=== PATIENT | female | born 1995 | race Caucasian/White ===

== ENCOUNTER 2019-04-09 18:19 | Emergency (ER) | payer SELFPAY ==
[2019-04-09 18:23] VITALS: BP 123/84; PULSE 69; TEMP 98.1; BMI 21.7
--- NOTE | 2019-04-09 18:26 | PDOC ---
Rapid Medical Evaluation Chief Complaint: Headache Time Seen by Provider: 04/09/19 18:20 Medical Evaluation: 04/09/19 18:21 I have performed a brief in-person evaluation of this patient. The patient presents with a chief complaint of: headache started 5 days ago, temporal/ bilateral with photophobia-no relief with Pertinent physical exam findings: + photophobic, with sinus fullness. I have ordered the following: UA/ UCG The patient will proceed to the ED for further evaluation. 04/09/19 18:25 Discharge Disposition - Diagnosis Head ache - Referrals - Patient Instructions - Post Discharge Activity
--- NOTE | 2019-04-09 18:53 | PDOC ---
History of Present Illness - General Chief Complaint: Headache Stated Complaint: HEADACHE Time Seen by Provider: 04/09/19 18:20 History Source: Patient - History of Present Illness Initial Comments: 04/09/19 19:08 Chief complaint: Headache/head injury Patient is a healthy 24-year-old female who states that several days ago, she hit head, no LOC, hit her head on a cabinet, frontal, has had nausea. She developed headache 2 days later. So also having photophobia and nausea still. No fever. No numbness. Patient took Motrin without relief. GENERAL/CONSTITUTIONAL: No fever, weakness. dizziness HEAD, EYES, EARS, NOSE AND THROAT: No change in vision. No ear pain or discharge. No sore throat. CARDIOVASCULAR: No chest pain RESPIRATORY: No shortness of breath or cough GASTROINTESTINAL: No pain, nausea, vomiting, diarrhea or constipation GENITOURINARY: No dysuria MUSCULOSKELETAL: No neck or back pain SKIN: No rash NEUROLOGIC: + headache, no: vertigo, loss of consciousness, or loss of sensation. GENERAL: The patient is awake, alert, and fully oriented, in no acute distress. HEAD: Normal with no signs of trauma. EYES: Pupils equal, round and reactive to light, sclera anicteric, conjunctiva clear. ENT: pharynx: no erythema, no exudate, uvula midline NECK: supple CHEST: clear, nontender, rr ABD: soft, nontender BACK: no tenderness or signs of injury EXTREMITIES: Normal range of motion, no edema. NEUROLOGICAL: Normal speech, normal gait. Cranial nerves II through XII grossly intact, no gross focal abnormalities SKIN: Warm, Dry Past History - Past Medical History Allergies/Adverse Reactions: Allergies Allergy/AdvReac Type Severity Reaction Status Date / Time No Known Allergies Allergy Verified 04/09/19 18:23 COPD: No - Suicide/Smoking/Psychosocial Hx Smoking History: Never smoked Information on smoking cessation initiated: No Hx Alcohol Use: No Drug/Substance Use Hx: No *Physical Exam - Vital Signs Last Vital Signs Temp Pulse Resp BP Pulse Ox 98.1 F 69 19 123/84 100 04/09/19 18:21 04/09/19 18:21 04/09/19 18:21 04/09/19 18:21 04/09/19 18:21 Medical Decision Making - Medical Decision Making 04/09/19 19:11 Healthy 24-year-old female with no medical history, that hit her head 5 days ago , developed headache 2 days after that, continues with nausea, photophobia. Patient has had headache in the past but not frequently, had one 1 month ago but can't remember time before that she had it. She does not have a regular doctor is never seen a neurologist. Patient took Motrin without relief. Given the patient had head injury, will get head CT, unlikely hemorrhage, patient will give fluids, Reglan and Benadryl and be reassessed. 04/09/19 20:40 Patient feels better, head CT is negative, patient will be discharged home. *DC/Admit/Observation/Transfer Diagnosis at time of Disposition: Head ache Qualifiers: Headache type: unspecified Headache chronicity pattern: acute headache Intractability: not intractable Qualified Code(s): R51 - Headache - Discharge Dispostion Disposition: HOME Condition at time of disposition: Stable - Referrals Referrals: Jason Cervantes MD [Staff Physician] - - Patient Instructions Additional Instructions: Drink 2-3 L of water daily Take Tylenol 650 mg every 4 hours or Motrin 600 mg every 6 hours for fever and pain Return to the nearest ER if vomiting, severe headache, numbness or feeling sicker Followup with your doctor in one to 2 days. It may be beneficial, and a follow- up with neurology, neurologist as listed on your discharge instructions feel: Make an appointment - Post Discharge Activity
[2019-04-09] MEDS ORDERED: METOCLOPRAMIDE HCL INJECTION 10 MG/2 ML VIAL IVPUSH ONE (18:58)
[2019-04-09] MEDS ORDERED: METOCLOPRAMIDE HCL INJECTION 10 MG/2 ML VIAL ONE (18:59)
[2019-04-09] MEDS ORDERED: SODIUM CHLORIDE 1,000 ML IV STA (19:03)
[2019-04-09 19:14] LABS: EPI CELLS 2.4 /HPF (0-5/HPF); HYALINE CASTS 0 /lpf (0-8); URINE APPEARANCE CLOUDY; URINE BACTERIA 97.7 /hpf (NEGATIVE); URINE BILIRUBIN NEGATIVE (NEGATIVE); URINE COLOR YELLOW; URINE GLUCOSE (UA) NEGATIVE (NEGATIVE); URINE KETONE NEGATIVE (NEGATIVE); URINE LEUK ESTERASE NEGATIVE (NEGATIVE); URINE NITRITE NEGATIVE (NEGATIVE); URINE PROTEIN NEGATIVE (NEGATIVE); URINE RBC 28 /hpf (0-4); URINE UROBILINOGEN 0.2 mg/dL (0.2-1.0); URINE WBC 1 /hpf (0-5)
== END 2019-04-09 20:40 | disposition home or self-care (01) ==
LOC: JER 18:19 → JERFT 18:19
PROC: 3E0337Z Introduction of Electrolytic and Water Balance Substance into Peripheral Vein, Percutaneous Approach (ICD-10-PCS; principal; 2019-04-09)
PROC: 3E033GC Introduction of Other Therapeutic Substance into Peripheral Vein, Percutaneous Approach (ICD-10-PCS; 2019-04-09)
PROC: 3E033GC Introduction of Other Therapeutic Substance into Peripheral Vein, Percutaneous Approach (ICD-10-PCS; 2019-04-09)
DX: R51 Headache (principal); W22.8XXA Striking against or struck by other objects, initial encounter; Y93.89 Activity, other specified; Y92.89 Other specified places as the place of occurrence of the external cause; Y99.8 Other external cause status
CPT/HCPCS: 70450-TC; 81003; 84703; 99282-25; J7030

== ENCOUNTER 2019-10-21 16:12 | Emergency (ER) | payer OTHER ==
[2019-10-21] MEDS ORDERED: ACETAMINOPHEN 500 MG TABLET (FP) PO ONE (16:43)
--- NOTE | 2019-10-21 16:43 | PDOC ---
Rapid Medical Evaluation Time Seen by Provider: 10/21/19 16:40 Medical Evaluation: Allergies Allergy/AdvReac Type Severity Reaction Status Date / Time No Known Allergies Allergy Verified 10/21/19 16:41 10/21/19 16:41 CC: right sided headache s/p struck by ceiling fan PE: NC. AT. Neuro grossly normal Orders: tylenol Patient will proceed to the ED for further evaluation. Discharge Disposition - Diagnosis Head ache - Referrals - Patient Instructions - Post Discharge Activity
[2019-10-21 16:45] VITALS: BP 107/70; PULSE 69; TEMP 98.1; BMI 21.2
[2019-10-21] MEDS ORDERED: IBUPROFEN 400 MG TABLET (FP) PO ONE ×2 (17:35→17:49)
--- NOTE | 2019-10-21 17:41 | PDOC ---
History of Present Illness - General Chief Complaint: Pain Stated Complaint: HEADACHE/EVALUATION Time Seen by Provider: 10/21/19 16:40 History Source: Patient Past History - Past Medical History Allergies/Adverse Reactions: Allergies Allergy/AdvReac Type Severity Reaction Status Date / Time No Known Allergies Allergy Verified 10/21/19 16:41 COPD: No - Psycho Social/Smoking Cessation Hx Smoking History: Never smoked Have you smoked in the past 12 months: No Hx Alcohol Use: No Drug/Substance Use Hx: No Review of Systems - Review of Systems HEENTM: No: Blurred Vision Neurological: Yes: Headache. No: Dizziness *Physical Exam - Vital Signs Last Vital Signs Temp Pulse Resp BP Pulse Ox 98.1 F 69 18 107/70 100 10/21/19 16:41 10/21/19 16:41 10/21/19 16:41 10/21/19 16:41 10/21/19 16:41 - Physical Exam General Appearance: Yes: Appropriately Dressed. No: Apparent Distress HEENT: positive: Normal Voice, TMs Normal, Pharynx Normal Neck: positive: Supple Respiratory/Chest: negative: Respiratory Distress Integumentary: positive: Dry, Warm, Other (no obvious bruising) Neurologic: positive: Fully Oriented, Alert, Normal Mood/Affect Medical Decision Making - Medical Decision Making 10/21/19 17:35 24-year-old female, no significant history, states her head accidentally struck a ceiling fan today and has had pain to site since. For unclear reasons has not taken anything for pain. No dizziness, visual changes, LOC nausea or vomiting. Patient well-appearing and stable, currently sitting on chair and texting on her phone. Dose of Motrin given. To take [id number] meds as needed for pain Discharge - Discharge Information Problems reviewed: Yes Clinical Impression/Diagnosis: Head ache Qualifiers: Headache type: unspecified Headache chronicity pattern: acute headache Intractability: not intractable Qualified Code(s): R51 - Headache Scalp contusion Qualifiers: Encounter type: initial encounter Qualified Code(s): S00.03XA - Contusion of sc alp, initial encounter Condition: Good Disposition: HOME - Follow up/Referral - Patient Discharge Instructions Patient Printed Discharge Instructions: DI for Contusion Additional Instructions: Take motrin as needed - Post Discharge Activity
== END 2019-10-21 17:54 | disposition home or self-care (01) ==
LOC: JERFT 16:12
DX: R51 Headache (principal); S00.03XA Contusion of scalp, initial encounter
CPT/HCPCS: 99281-25

== ENCOUNTER 2019-11-04 08:18 | Emergency (ER) | payer OTHER ==
[2019-11-04 08:25] VITALS: BP 97/59; PULSE 92; TEMP 98.1; BMI 15.9
--- NOTE | 2019-11-04 08:48 | PDOC ---
History of Present Illness - General Chief Complaint: Sore Throat Stated Complaint: SORE THROAT Time Seen by Provider: 11/04/19 08:43 History Source: Patient - History of Present Illness Timing/Duration: reports: other Past History - Past Medical History Allergies/Adverse Reactions: Allergies Allergy/AdvReac Type Severity Reaction Status Date / Time No Known Allergies Allergy Verified 11/04/19 08:25 Home Medications: Ambulatory Orders NK [No Known Home Medication] 11/04/19 COPD: No - Psycho Social/Smoking Cessation Hx Smoking History: Never smoked Have you smoked in the past 12 months: No Hx Alcohol Use: No Drug/Substance Use Hx: No Review of Systems - Review of Systems Constitutional: No: Chills, Fever HEENTM: Yes: Throat Pain. No: Ear Pain Respiratory: No: Cough *Physical Exam - Vital Signs Last Vital Signs Temp Pulse Resp BP Pulse Ox 98.1 F 92 H 14 97/59 L 97 11/04/19 08:22 11/04/19 08:22 11/04/19 08:22 11/04/19 08:22 11/04/19 08:22 - Physical Exam General Appearance: Yes: Appropriately Dressed. No: Apparent Distress HEENT: positive: Normal ENT Inspection, Normal Voice, TMs Normal, Pharynx Normal. negative: Scleral Icterus (R), Scleral Icterus (L) Neck: positive: Supple. negative: Lymphadenopathy (R), Lymphadenopathy (L) Respiratory/Chest: negative: Respiratory Distress Integumentary: positive: Dry, Warm Neurologic: positive: Fully Oriented, Alert, Normal Mood/Affect Medical Decision Making - Medical Decision Making 11/04/19 08:46 24-year-old female no significant history here with sore throat x2 days. No ear pain cough fever or chills. Son with similar symptoms see exam M/l viral pharyngitis Exam wnl (BP baseline per pt) -Dc w/ symptomatic tx Discharge - Discharge Information Problems reviewed: Yes Clinical Impression/Diagnosis: Sore throat Condition: Good Disposition: HOME - Follow up/Referral - Patient Discharge Instructions Patient Printed Discharge Instructions: DI for Viral Pharyngitis - Post Discharge Activity
== END 2019-11-04 08:51 | disposition home or self-care (01) ==
LOC: JERFT 08:18
DX: R07.0 Pain in throat (principal)
CPT/HCPCS: 99282-25

== ENCOUNTER 2025-03-03 16:50 | Emergency (ER) | payer OTHER ==
[2025-03-03 17:56] VITALS: BP 118/85; PULSE 70; RESP 17; TEMP 98.7; BMI 25.3
== END 2025-03-03 19:23 | disposition home or self-care (01) ==
LOC: JER 16:50
DX: R09.89 Other specified symptoms and signs involving the circulatory and respiratory systems (principal); R06.02 Shortness of breath; R07.9 Chest pain, unspecified; R05.9 Cough, unspecified; R11.10 Vomiting, unspecified; R13.10 Dysphagia, unspecified; R09.A2 Foreign body sensation, throat
CPT/HCPCS: 70360-TC-FY; 99283-25